=== PATIENT | female | born 1985 | race American Indian/Alaskan Native ===

== ENCOUNTER 2020-11-04 18:32 | Emergency (ER) | payer SELFPAY ==
[2020-11-04 23:41] LABS: Basophils # (Auto) 0.1 K/mm3 (0.0-0.1); Basophils % (Auto) 1.2 % (0.0-1.8); Eosinophils # (Auto) 0.1 K/mm3 (0.0-0.4); Hematocrit 33.4 % (30.3-42.9); Lymphocytes % (Auto) 29.4 % (13.4-35.0); Mean Corpuscular HGB Conc 33 % (30-34); Mean Corpuscular Volume 91 fl (79-97); Monocytes # (Auto) 0.5 K/mm3 (0.0-0.8); Monocytes % (Auto) 7.8 % (0.0-7.3); Platelet Count 294 K/mm3 (140-440); Red Blood Count 3.67 M/mm3 (3.65-5.03); Red Cell Distribution Width 15.2 % (13.2-15.2)
[2020-11-05 00:05] LABS: Alanine Aminotransferase 14 units/L (7-56); Albumin 4.6 g/dL (3.9-5); Blood Urea Nitrogen 7 mg/dL (7-17); Hemolysis Index 7
[2020-11-05 00:20] LABS: BUN/Creatinine Ratio 14
[2020-11-05] MEDS ORDERED: IBUPROFEN 800 MG TAB PO ONE (03:05)
[2020-11-05] MEDS ORDERED: VALSARTAN 40 MG TAB PO ONE (03:06)
[2020-11-05] MEDS ORDERED: amLODIPine 5 MG TAB PO ONE (03:06)
[2020-11-05 03:57] VITALS: BP 194/101
== END 2020-11-05 03:57 | disposition home or self-care (01) ==
LOC: ED 18:32
DX: G44.209 Tension-type headache, unspecified, not intractable (principal); I16.0 Hypertensive urgency; R07.89 Other chest pain; E11.9 Type 2 diabetes mellitus without complications; Z79.899 Other long term (current) drug therapy
CPT/HCPCS: 36415; 71046; 80053; 84484; 85025; 93005; 99284

== ENCOUNTER 2021-08-14 19:27 | Emergency (ER) | payer SELFPAY ==
[2021-08-14 20:15] VITALS: BP 231/118
== END 2021-08-14 22:25 | disposition home or self-care (01) ==
LOC: ED 19:27
DX: I10 Essential (primary) hypertension (principal); Z53.21 Procedure and treatment not carried out due to patient leaving prior to being seen by health care provider